=== PATIENT | female | born 1970 | race Caucasian/White ===

== ENCOUNTER 2018-05-05 12:10 | Observation (INO) ==
[~2018-05-05 12:10] MED LIST: ATROVENT NEB INH ONE; SOLU-MEDROL IV ONE; XOPENEX NEB INH ONE
--- NOTE | 2018-05-05 12:22 | PROVIDER DOCUMENTATION ---
HPI-General Adult - General Chief Complaint: Asthma Attack Stated Complaint: ASTHMA Time Seen by Provider: 05/05/18 12:10 Source: patient, EMS Allergies/Adverse Reactions: Patient Allergies Allergy/AdvReac Type Severity Reaction Status Date / Time No Known Allergies Allergy Verified 12/13/16 07:02 Home Medications: Home Medication List Medication Instructions Recorded Confirmed Last Taken Type Alendronate Sodium 12/13/16 Unknown History Montelukast Sodium 12/13/16 Unknown History Trazodone HCl 12/13/16 Unknown History - History of Present Illness -Gen Adult Nature of Presenting Problems: 2 day of nonproductive cough, wheeze. History of asthma. No cp, fever. Feeling better after EMS nebs. Location of Pain/Injury: reports: none Pain Radiation: reports: no radiation Quality of Pain: reports: none Onset/Duration: reports: 2 days ago Timing: reports: still present Context/Activities at Onset: reports: none Modifying Factors: improves with: nothing Associated Symptoms: reports: anxiety, cough, shortness of breath. denies: chest pain, diaphoresis, diarrhea, fever/chills, headaches, sinus congestion/ drainage, syncope, vomiting Similar Symptoms Previously?: Yes Recently seen or treated by another doctor?: No Review of Systems - Adult - REVIEW OF SYSTEMS - ADULT Constitutional: reports: no symptoms reported. denies: chills, fever Eyes: reports: no symptoms reported Ears, Nose, Mouth & Throat: reports: no symptoms reported Cardiovascular: reports: no symptoms reported Respiratory: reports: see HPI, cough, shortness of breath, wheezing. denies: hemoptysis Gastrointestinal: reports: no symptoms reported Genitourinary: reports: no symptoms reported Musculoskeletal: reports: no symptoms reported Integumentary: reports: no symptoms reported Neurological: reports: no symptoms reported Psychiatric: reports: no symptoms reported Endocrine: reports: no symptoms reported Hematologic/Lymphatic: reports: no symptoms reported Allergic/Immunologic: reports: no symptoms reported All Other Systems: Reviewed and Negative Past History - Adult - PAST MEDICAL HISTORY-ADULT Review of Records: reports: Old Records Reviewed, Nursing Assessment Review, Medications Reviewed, Social history reviewed & non-contributory. Major Childhood Illnesses: reports: denies history Cardiovascular: reports: denies history Respiratory: reports: denies history Gastrointestinal: reports: denies history Obstetrical/Gynecological: reports: denies history Genitourinary: reports: denies history Musculoskeletal: reports: denies history Neurological: reports: denies history Psychiatric: reports: anxiety, depression Endocrine/Immune: reports: denies history Other Conditions: reports: denies history - PRIOR SURGERIES/PROCEDURES Surgical/Procedure History: reports: none - IMMUNIZATION STATUS Childhood Immunizations: See Nurse Assessment Flu Vaccine: See Nurse Assessment - FAMILY HISTORY Family History: reviewed, not pertinent - SOCIAL HISTORY Smoking: denies Substance Use: none/never Alcohol Use Frequency: never Living Situation: family Physical Exam-General - PHYSICAL EXAM-ADULT Initial Vital Signs Reviewed: Yes - CONSTITUTIONAL General Appearance: appears well, alert, moderate distress - EYES Eyes: PERRL/EOMI, pink conjunctivae - NECK Neck: supple - RESPIRATORY Respiratory: wheezing, increased rate - CARDIOVASCULAR Cardiovascular: tachycardia - MUSCULOSKELETAL Extremity: normal gait, normal inspection, no pedal edema - SKIN Integumentary: normal color, normal turgor, warm/dry - NEUROLOGIC Neurologic: grossly normal - PSYCHIATRIC Psych/Mental Status: normal thought content Progress - PLAN OF CARE/RESULTS Progress/Plan/Lab Results: Vital Signs - 8 hr 05/05/18 12:12 Temperature 99.8 F H Pulse Rate 130 H Respiratory Rate 32 H Blood Pressure 119/86 O2 Sat by Pulse Oximetry 91 L Orders Category Date Time Status Cardiac Monitoring DIRECTED Care 05/05/18 12:08 Active Saline Loc NOW Care 05/05/18 12:08 Active CHEST-PORTABLE [RAD] Stat Exams 05/05/18 12:08 Ordered ABG [RESP] Routine Lab 05/05/18 12:20 Ordered CBC WITH ELECTRONIC DIFF [HEME] Stat Lab 05/05/18 12:08 Uncollected CK PROFILE [SP CHEM] Stat Lab 05/05/18 12:08 Uncollected COMPREHENSIVE METABOLIC PANEL [CHEM] Stat Lab 05/05/18 12:08 Uncollected PROTIME WITH INR [COAG] Stat Lab 05/05/18 12:08 Uncollected PTT [COAG] Stat Lab 05/05/18 12:08 Uncollected TROPONIN T Stat Lab 05/05/18 12:08 Uncollected Ipratropium [place] Neb [Atrovent Neb] Med 05/05/18 12:08 Discontinued 0.5 mg INH NOW ONE Levalbuterol Neb [Xopenex Neb] Med 05/05/18 12:08 Discontinued 2.5 mg INH NOW ONE Methylprednisolone Sod Succ [Solu-Medrol] Med 05/05/18 12:08 Discontinued 125 mg IV NOW ONE Aerosol Treatments Stat Oth 05/05/18 12:08 Active CP/SOB/Palp >45 yrs of Age Stat Oth 05/05/18 12:08 Ordered EKG [EKG] Stat Ther 05/05/18 12:08 Ordered 1420: feeling better. still wheezing. spo2 95% on 2L Result Diagrams: 05/05/18 12:40 05/05/18 12:40 - XRAY 1 Impression: See EMR Report (CHEST-PORTABLE - 05/05/2018 INDICATION: dyspnea COMPARISON: None FINDINGS: The lungs are normally expanded and clear. Heart size and mediastinal contours are normal. No pneumothorax or pleural effusion. IMPRESSION: Negative exam.) - CONSULTS/PCP/HOSPITALIST Notification #1 *Consult/PCP/Hospitalist*: Dr. Cabral Time Discussed: 14:25 Consult Disposition: Admit Departure - Departure Date of Disposition Decision: 05/05/18 Time of Disposition Decision: 14:25 DIAGNOSIS: Bronchospasm, Hypoxemia Disposition: ADMITTED INPATIENT 09 Certified Medical Emergency: Emergent Condition: Stable - Critical Care Note This patient required my direct & personal management of CC.: Yes Total Time (mins): 35 Critical Care Statement: This patient required my direct personal management to treat or rule out processes, the absence of which, could potentiallly result in sudden, clinically significant life or limb threatening deterioration. Attestation - Physician/ STEPHANIE Attestation Patient care was provided by Advanced Practice Provider:: Yes Advanced Practice Provider:: Alex Cosme Advanced Practice Provider documentation review:: The Mid-level provider documentation, treatment plan and medical decision making was reviewed by the physician who agrees with all treatment and medical decision making by the MLP. The physician spent face to face time with patient:: No Advanced Practice Provider documentation review:: Supervising physician onsite and consulted in the evaluation and care of this patient. The physician did not have a face to face encounter with the patient.
[2018-05-05 12:33] LABS: BE -1.2 mmoll (-3.0-3.0); BLOOD TYPE ARTERIAL; HCO3-(ACT) 23.8 mmoll (20.0-26.0); METHB 0.9 % (0.0-1.5); O2(CT) 18.4 mL/dL (15.0-23.0); O2HB 90.6 % (95.0-99.0); PCO2(98.6) 39 mmHg (35-45); PO2(98.6) 60 mmHg (60-100); SAMPLE BLOOD; SAO2 93.1 % (95.0-100.0); THB 14.5 g/dL (11.5-17.4); pH(98.6) 7.39 (7.35-7.45)
[2018-05-05 12:35] LABS: ALLEN TEST YES; MODALITY ROOM AIR
--- NOTE | 2018-05-05 12:55 | EKG Report ---
Test Performed on : 05/05/2018 12:48:46 PM Test Reason : dyspnea Blood Pressure : / mmHG Vent. Rate : 122 BPM Atrial Rate : 122 BPM P-R Int : 138 ms QRS Dur : 068 ms QT Int : 318 ms P-R-T Axes : 071 064 072 degrees QTc Int : 453 ms Poor data quality, interpretation may be adversely affected Sinus tachycardia. Nonspecific ST abnormality Abnormal ECG No previous ECGs available Unconfirmed Result
[2018-05-05 12:56] LABS: BASO# 0.05 X1000 (0.0-0.2); BASO% 0.4 % (0.0-0.8); EOS# 0.16 X1000 (0.0-0.7); EOS% 1.3 % (0.0-10.0); HEMOGLOBIN 13.8 g/dL (12.0-16.0); IMM GRAN# 0.02 X1000 (0.0-0.04); IMM GRAN% 0.2 % (0.0-0.5); LYMPH# 1.38 X1000 (1.2-3.4); MCH 30.9 PG (27-31); MCHC 33.7 g/dL (33-37); MCV 91.9 FL (81-99); MONO# 0.61 X1000 (0.11-0.59); MONO% 4.9 % (1.7-9.3); MPV 9.1 FL (7.4-10.4); NEUT# 10.31 X1000 (1.4-6.5); NEUT% 82.2 % (42.2-75.2); PLT 275 X1000 (130-400); RBC 4.46 XMIL (4.2-5.4); RDW 13.4 % (11.5-14.5); WBC 12.53 X1000 (4.8-10.8)
--- NOTE | 2018-05-05 13:00 | Diag Imaging Result Doc PS360 ---
CHEST-PORTABLE - 05/05/2018 INDICATION: dyspnea COMPARISON: None FINDINGS: The lungs are normally expanded and clear. Heart size and mediastinal contours are normal. No pneumothorax or pleural effusion. IMPRESSION: Negative exam. Electronically signed by Nathan Gregory 05/05/2018 12:57 PM
[2018-05-05 13:05] LABS: INR 0.94; PTT 27.1 Seconds (22.3-41.8)
[2018-05-05 13:11] LABS: INFLUENZA A NEGATIVE (NEGATIVE); INFLUENZA B NEGATIVE (NEGATIVE)
[2018-05-05 13:12] LABS: AGAP 16; ALBUMIN 4.5 g/dL (3.5-5.0); ALKALINE PHOSPHATASE 82 U/L (32-104); BUN 9 mg/dL (8-22); CHLORIDE 98 mmol/L (98-107); COSMO 273; CREATININE 0.6 mg/dL (0.5-0.9); ESTIMATED GFR > 60; GLUCOSE 132 mg/dL (70-104); GOT 16 U/L (10-30); GPT 8 U/L (10-36); POTASSIUM 3.7 mmol/L (3.5-5.1); SODIUM 136 mmol/L (136-145); TCO2 22 mmol/L (25-35); TOTAL PROTEIN 7.4 g/dL (6.3-8.3)
[2018-05-05 13:24] LABS: CK PROFILE 286 U/L (24-173)
[2018-05-05 13:43] LABS: CK INDEX 2.1 (0.0-2.5); CK-MB 5.89 ng/mL (0.0-5.0)
--- NOTE | 2018-05-05 16:24 | HISTORY AND PHYSICAL ---
PRIMARY CARE PHYSICIAN: Glynn Salazar MD CHIEF COMPLAINT: Shortness of breath, diaphoresis, and a nonproductive cough that worsened today. HISTORY OF PRESENTING ILLNESS: This is a 47-year-old female who presents to [facility] ER with complaints of a nonproductive cough, diaphoresis, and increased shortness of breath with wheezing that has progressively worsened today. Workup in the emergency room showed a heart rate of 130, respirations 32, temperature 99.8 degrees, saturating 91% on room air. Her chest x-ray was negative. Her laboratory data showed a white blood cell count of 12.53. Her influenza A and B were negative. Chest x-ray was negative. So, she will be admitted for an acute chronic obstructive pulmonary disease exacerbation for further evaluation and treatment. PAST MEDICAL HISTORY: Asthma, anxiety, and depression. PAST SURGICAL HISTORY: None. FAMILY HISTORY: Reviewed and noncontributory. SOCIAL HISTORY: She currently lives with family. Smokes 7 to 8 cigarettes a day and has been a smoker since she was 14 years old. Denies any alcohol or illicit drug use. ALLERGIES: No known drug allergies. HOME MEDICATIONS: We will need to obtain a current list and restart as appropriate after reviewed. We will place an order for nursing to update and confirm home medications. LABORATORY DATA: Showed a white blood cell count of 12.53, hemoglobin 13.8, hematocrit 41, platelets 275,000. PT and INR of 13 and 0.94. ABG with a pH of 7.39, pCO2 39, PO2 60, bicarb 23.8. Sodium 136, potassium 3.7, chloride 98, CO2 22, BUN of 9, creatinine 0.6, glucose 132. Creatine kinase was 286 with a CK-MB of 5.89 with a troponin of 0.022. Influenza A and B were both negative. Chest x-ray showed a negative exam. EKG with sinus tachycardia at 122. REVIEW OF SYSTEMS: She denied any fever, chills, blurred vision, dizziness. She had a nonproductive cough, diaphoresis, shortness of breath, wheezing. Denied any abdominal pain, constipation, diarrhea, burning or hurting with urination. PHYSICAL EXAMINATION: VITAL SIGNS: On arrival, she had a temperature of 99.8 degrees, pulse 130 respirations 32, blood pressure 119/86. Saturating 91% to be on room air. Currently saturating 96% on 3 L. GENERAL: This is a 47-year-old female who is lying in the bed and answers questions appropriately. HEENT: Normocephalic, atraumatic. Normal ENT inspection. Oropharynx and nares are clear. EYES: Pupils are equal, round, reactive to light and accommodation. Extraocular movements are intact. NECK: Normal inspection. Normal range of motion. LUNGS: With wheezing throughout entire posterior lung gonzáles. Equal lung expansion. Chest wall movement noted. O2 via nasal cannula currently in use. HEART: Regular rate and rhythm. No murmurs, rubs, or gallops. ABDOMEN: Soft, nontender, nondistended. Bowel sounds are present x4 quadrants. MUSCULOSKELETAL: She has 5/5 strength x4 extremities. NEUROLOGICAL: The cranial nerves 2-12 appear grossly intact. ASSESSMENT: 1. An acute chronic obstructive pulmonary disease exacerbation. 2. Dyspnea. 3. Tobacco abuse. PLAN: She will be admitted to the medical unit at [place], placed on telemetry, O2 per protocol. Incentive spirometry. Peak flows b.i.d. Regular diet. She will be on Solu-Medrol 80 mg IV q.8 hours and we will wean as she improves, Rocephin 1 gram IV q.24, recheck a CBC, BMP in the a.m. We again will update and confirm home medications and further orders after being seen by attending. Dictated by ESTUARDO Killian for Les Cabral MD cc: ESTUARDO Killian MD Akram Haggag, MD
[2018-05-05] MEDS ORDERED: ZITHROMAX 500 MG/NS 500 MG/250 ML IVPB IV SCH (16:54)
[2018-05-05] MEDS: DUONEB (A & A) INH SCH ×2 (18:15→22:53)
[2018-05-05] MEDS: SOLU-MEDROL IV SCH (20:31)
[2018-05-05] MEDS: ROCEPHIN 1 GM in NS 50 ML IV SCH (20:31)
[2018-05-05] MEDS ORDERED: DESYREL PO PRN (20:48)
[2018-05-05] MEDS ORDERED: NS 1,000 ML IV ONE (21:00)
[2018-05-05] MEDS ORDERED: DUONEB (A & A) INH PRN (21:01)
--- NOTE | 2018-05-05 22:01 | HISTORY AND PHYSICAL ---
ADDENDUM: Patient presented with shortness of breath. She has about a 30 pack year history of smoking but she says she has a history of asthma, therefore difficult to intervene with asthma versus COPD but she has never been hospitalized. She does say she uses her rescue inhaler daily in the winter with exchanges in heat and cold but has worsened. Today she had severe bronchospasm. She was tachycardic. She was somewhat hypoxic. She not seen by a shaker out and laughed when I said that. Her regular doctor is Dr. Salazar. In any case she was admitted for COPD exacerbation she could not break, presumably COPD versus asthma, with 30 pack-year history of smoking I think it is more likely she has COPD. In any case she was admitted for treatment. She is on steroids, antibiotics. She is still has diffuse end-expiratory wheezes. Based on the fact that she has daily symptoms I think she probably needs at least a long-acting inhaled steroid. We will start Pulmicort while she is here and discharge on QVAR or Flovent depending on coverage. She is empirically on antibiotics. Advised on cessation of tobacco which I think she has already stopped that. We will continue to follow closely. cc: Les Cabral MD
[2018-05-05] MEDS: PULMICORT INH SCH (22:53)
[2018-05-06] MEDS: DUONEB (A & A) INH SCH ×6 (03:13→23:49)
[2018-05-06] MEDS: SOLU-MEDROL IV SCH ×3 (04:23→19:55)
[2018-05-06 05:26] LABS: URINE SOURCE CLEAN CATCH
[2018-05-06 05:36] LABS: BILIRUBIN URINE NEGATIVE (NEGATIVE); BLOOD URINE NEGATIVE (NEGATIVE); CLARITY CLEAR (CLEAR); COLOR YELLOW; GLUCOSE URINE NEGATIVE (NEGATIVE); KETONE URINE 2+(Moderate) mg/dL (NEGATIVE); LEUKOCYTES URINE NEGATIVE (NEGATIVE); NITRITE URINE NEGATIVE (NEGATIVE); PROTEIN URINE NEGATIVE (NEGATIVE); SP GRAVITY URINE 1.015; UROBILINOGEN URINE NORMAL
[2018-05-06] MEDS: LOVENOX SUBQ SCH (05:40)
[2018-05-06 05:48] LABS: URINE BACTERIA 2+ /HFP; URINE EPITHELIAL CELLS <10 /HPF (<10); URINE WBC <10 /HPF (<10)
[2018-05-06 06:14] LABS: BASO# 0.01 X1000 (0.0-0.2); BASO% 0.1 % (0.0-0.8); HEMATOCRIT 40.2 % (37.0-47.0); HEMOGLOBIN 13.4 g/dL (12.0-16.0); IMM GRAN# 0.03 X1000 (0.0-0.04); IMM GRAN% 0.2 % (0.0-0.5); LYMPH# 1.31 X1000 (1.2-3.4); LYMPH% 9.2 % (20.5-51.1); MCH 30.7 PG (27-31); MCHC 33.3 g/dL (33-37); MONO# 0.64 X1000 (0.11-0.59); MONO% 4.5 % (1.7-9.3); MPV 9.3 FL (7.4-10.4); NEUT# 12.21 X1000 (1.4-6.5); PLT 289 X1000 (130-400); RBC 4.37 XMIL (4.2-5.4); RDW 13.5 % (11.5-14.5)
[2018-05-06 06:30] LABS: AGAP 15; BUN 11 mg/dL (8-22); CALCIUM 8.9 mg/dL (8.8-10.2); CHLORIDE 102 mmol/L (98-107); COSMO 277; CREATININE 0.6 mg/dL (0.5-0.9); ESTIMATED GFR > 60; GLUCOSE 131 mg/dL (70-104); POTASSIUM 3.7 mmol/L (3.5-5.1); SODIUM 138 mmol/L (136-145); TCO2 21 mmol/L (25-35)
[2018-05-06 07:11] LABS: LYMPHS 8 % (21-51); MONO 3 % (1-9); SEGS 89 % (42-75)
[2018-05-06] MEDS: CELEXA PO SCH (08:43)
[2018-05-06] MEDS: SINGULAIR PO SCH (08:43)
[2018-05-06] MEDS: ALLEGRA PO SCH (08:43)
[2018-05-06] MEDS: PULMICORT INH SCH ×2 (11:09→19:29)
--- NOTE | 2018-05-06 18:41 | PROGRESS NOTE ---
DATE: 05/06/2018 SUBJECTIVE: The patient looks like she is breathing a little bit better. OBJECTIVE: Vital Signs: Blood pressure 106/55, heart rate 115, respiratory rate 16, temperature 98 degrees, 95% on 2 L. Cardiovascular: Regular rate and rhythm. Pulmonary: Bilateral breath sounds clear to auscultation. Gastrointestinal: Soft, nontender, nondistended. ASSESSMENT AND PLAN: 1. The patient is stable or improving. I am going to wean her steroids a bit further today and will see how she does. I think most of this is just COPD exacerbation. With her frequency of attacks though, I do think she probably will need a long-acting steroid. She is on empiric antibiotics. We will continue to follow. Anticipate discharge in the next 1 to 2 days. I do not anticipate she will need home oxygen, but she may need evaluation for that prior to discharge. 2. Tobacco abuse. She was advised on cessation. I think she has quit previously. DISPOSITION: Anticipate discharge soon. cc: Les Cabral MD
[2018-05-06] MEDS: ROCEPHIN 1 GM in NS 50 ML IV SCH (19:56)
[2018-05-07] MEDS: DUONEB (A & A) INH SCH ×6 (02:59→22:55)
[2018-05-07] MEDS: LOVENOX SUBQ SCH (04:28)
[2018-05-07] MEDS: SOLU-MEDROL IV SCH ×3 (04:28→20:04)
[2018-05-07 06:26] LABS: BASO# 0.01 X1000 (0.0-0.2); BASO% 0.1 % (0.0-0.8); HEMOGLOBIN 12.6 g/dL (12.0-16.0); IMM GRAN# 0.05 X1000 (0.0-0.04); IMM GRAN% 0.3 % (0.0-0.5); LYMPH# 1.71 X1000 (1.2-3.4); LYMPH% 9.3 % (20.5-51.1); MCH 30.7 PG (27-31); MCHC 33.2 g/dL (33-37); MCV 92.5 FL (81-99); MONO# 1.42 X1000 (0.11-0.59); MONO% 7.7 % (1.7-9.3); MPV 9.3 FL (7.4-10.4); NEUT# 15.22 X1000 (1.4-6.5); NEUT% 82.6 % (42.2-75.2); PLT 295 X1000 (130-400); RBC 4.11 XMIL (4.2-5.4); RDW 13.8 % (11.5-14.5); WBC 18.41 X1000 (4.8-10.8)
[2018-05-07 06:39] LABS: AGAP 14; BUN 15 mg/dL (8-22); CALCIUM 8.6 mg/dL (8.8-10.2); CHLORIDE 100 mmol/L (98-107); COSMO 278; CREATININE 0.6 mg/dL (0.5-0.9); ESTIMATED GFR > 60; GLUCOSE 121 mg/dL (70-104); POTASSIUM 3.9 mmol/L (3.5-5.1); SODIUM 138 mmol/L (136-145); TCO2 24 mmol/L (25-35)
[2018-05-07] MEDS: PULMICORT INH SCH ×2 (07:44→19:31)
[2018-05-07] MEDS: ALLEGRA PO SCH (08:19)
[2018-05-07] MEDS: SINGULAIR PO SCH (08:19)
[2018-05-07] MEDS: CELEXA PO SCH (08:19)
[2018-05-07] MEDS: ZITHROMAX PO SCH (08:20)
--- NOTE | 2018-05-07 15:24 | PROGRESS NOTE ---
DATE: 05/07/2018 SUBJECTIVE: This morning, Ms. Coburn refers to be doing a little better. Still has some cough with some wheezing. OBJECTIVE: Vital signs: Blood pressure is 119/75, pulse 97, respirations 18, temperature is 98.8 degrees. Patient was saturating 96% on 2 L. General: Ms. Coburn is a 47-year-old female, she is in bed. Not seemingly distress. HEENT: Mucosa is pink and moist. Anicteric. Acyanotic. Neck: Supple. Chest: Air entry is bilaterally reduced. There is diffuse expiratory wheezing bilaterally. Cardiovascular: Regular rate and rhythm. No murmurs, no rubs, no gallops. Abdomen: Soft, nontender. Bowel sounds present. Extremities: No pedal edema. [employer]NA[employer]: Patient is awake, alert, oriented. There is no focal neurological deficit. IMAGING: A chest x-ray on presentation was negative. ASSESSMENT: 1. Acute hypoxemic respiratory failure on presentation secondary to chronic obstructive pulmonary disease exacerbation, improving on oxygen therapy. 2. Chronic obstructive pulmonary disease exacerbation. Patient is currently on antibiotics, steroids and bronchodilation therapy. 3. Tobacco abuse. Patient has been counseled. 4. Leukocytosis, likely secondary to steroid use. PLAN: In general, I think Ms. Coburn is doing fairly okay. Still has some wheezing. I think she will benefit from another day of hospital stay with intense respiratory therapy, antibiotics, IV steroids and nebulizations. Hopefully tomorrow, if she is feeling a lot better, we can get her discharged. I have discussed the plan with Ms. Coburn and she is looking forward for discharge hopefully tomorrow. cc: Nicho Bueno MD
[2018-05-07] MEDS: ROCEPHIN 1 GM in NS 50 ML IV SCH (20:04)
[2018-05-08] MEDS: SOLU-MEDROL IV SCH ×2 (03:00→12:09)
[2018-05-08] MEDS: DUONEB (A & A) INH SCH ×3 (03:41→11:25)
[2018-05-08 04:07] VITALS: BP 93/62
[2018-05-08] MEDS: LOVENOX SUBQ SCH (05:01)
[2018-05-08] MEDS: PULMICORT INH SCH (08:02)
[2018-05-08] MEDS: CELEXA PO SCH (08:32)
[2018-05-08] MEDS: ZITHROMAX PO SCH (08:32)
[2018-05-08] MEDS: ALLEGRA PO SCH (08:32)
[2018-05-08] MEDS: SINGULAIR PO SCH (08:32)
[2018-05-08] MEDS ORDERED: PNEUMOVAX 23 IM ONE (11:57)
--- NOTE | 2018-05-08 20:54 | DISCHARGE SUMMARY ---
ADMISSION DATE: 05/05/2018 DISCHARGE DATE: 05/08/2018 DISCHARGE DIAGNOSIS: 1. Acute chronic obstructive pulmonary disease exacerbation. 2. Tobacco abuse. HOSPITAL COURSE: This is a 47-year-old female who was admitted to the hospital after presenting to the emergency room with wheezing and shortness of breath. She was diagnosed as having acute COPD exacerbation and was admitted to the hospital for inpatient care. She received inhaled bronchodilators along with IV Solu-Medrol and IV ceftriaxone plus oral azithromycin. Her condition has improved and she wants to go home today. She does have leukocytosis with white blood cell count of 18,000 but that appears to be secondary to prednisone intake. She has a negative chest x-ray and clinically looks good because of which I am going to let her go home today. DISCHARGE MEDICATIONS: 1. Azithromycin 250 mg orally once daily for 5 days. 2. Medrol Dosepak to be taken as directed. 3. Albuterol sulfate inhaler 2 puffs q.6 hours as needed for wheezing. 4. Breo inhaler 200/25 one inhalation once daily. 5. Singular 10 mg orally once daily. 6. Tamia 180 mg orally once daily. 7. Citalopram 20 mg orally once daily. FOLLOWUP: With her PCP, Dr. Glynn Salazar in approximately 1 week. Counseling against continued tobacco abuse was provided to her during today's medical rounds. The patient feels well and agrees to go home today. CONDITION: Stable. DISPOSITION: Home. cc: Glynn Salazar MD MTDD
== END 2018-05-08 12:40 | disposition home or self-care (01) ==
LOC: P.ED 12:10 → P.MEDSURG 12:10 → SUATTDRO 15:31
PROVIDERS: ATTEND Internal Medicine
CPT/HCPCS: 36415; 71010; 71045; 80048; 80053; 81001; 82550; 82553; 82805; 84484; 85025; 85610; 85730; 87088; 87275; 87276; 87804; 90732; 93005; 94640; 94761; 94799; 96374; 99285; A9270; J0456; J0696; J1650; J2920; J2930; J7030